=== PATIENT | male | born 1970 | race Native Hawaiian/Other Pacific Islander ===

== ENCOUNTER 2020-07-23 12:12 | Emergency (ER) | payer OTHER ==
[~2020-07-23] VITALS: Ht 185.4 cm; Wt 106.6 kg
[2020-07-23 12:25] VITALS: TEMP 98.3
[2020-07-23 14:07] VITALS: BP 146/84
== END 2020-07-23 14:08 | disposition home or self-care (01) ==
LOC: ED 12:12
DX: K59.09 Other constipation (principal)
CPT/HCPCS: 99283